=== PATIENT | female | born 1970 | race Two or more races ===

== ENCOUNTER 2018-06-20 08:37 | Emergency (ER) | payer SELFPAY ==
[~2018-06-20] VITALS: Ht 160 cm; Wt 76.0 kg
[2018-06-20] MEDS ORDERED: BUPIVACAINE HCL/PF 0.25% 10 ML VIAL INJ ONE (09:00)
[2018-06-20] MEDS ORDERED: PERTUSS(ACELL),DIPH,TET VAC/PF 0.5 ML VIAL IM ONE (09:00)
[2018-06-20 10:59] VITALS: BP 116/72
== END 2018-06-20 11:02 | disposition home or self-care (01) ==
LOC: EMS 08:38
DX: S91.311A Laceration without foreign body, right foot, initial encounter (principal); W25.XXXA Contact with sharp glass, initial encounter; Y93.89 Activity, other specified; Y92.89 Other specified places as the place of occurrence of the external cause; Y99.8 Other external cause status
CPT/HCPCS: 12002; 73630; 90471; 90715; 99283; J3490